=== PATIENT | male | born 1930 | race Caucasian/White ===

== ENCOUNTER → 2017-11-15 | Outpatient (CLI) | payer MEDICARE ==
--- NOTE | 2017-11-17 13:03 | PE ---
Nuclear medicine PET/CT HISTORY: Pulmonary nodule, lung carcinoma initial Patient received 14.6 mCi F-18 FDG intravenously in delayed scanning was performed from skull base to the mid thighs. Localization and attenuation correction CT scan was. No comparisons Neck and chest: Patient shows a lung mass, possible confluent mass with daughter lesions, in the righ t lower lobe showing a stellate appearance and extension anterior posterior direction towards the hil um measuring approximately 4.6 cm by approximately 3.7 cm in transverse dimension with extension into the pleural surface. There is associated hypermetabolic uptake, SUV is 6-7. 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 Posterior diaphragmatic hernias containing fat. 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 There are coronary artery calcifications. There is a small pericardial effusion. Hiatal he rnia is present. No pleural effusion. No mediastinal, axillary, or hilar adenopathy. Symmetric nasoph aryngeal uptake is indeterminate. Abdomen pelvis: No suspicious hypermetabolic uptake. Right and left adrenal gland show low dense foci and no suspicious uptake. No retroperitoneal adenopathy. Low dense foci within the liver right lobe posteriorly may represent cysts. Atheromatous change present within the aorta. Colonic interposition noted anterior to the left lobe liver. The prostate is enlarged and shows associated calcification, some associated hypermetabolic uptake no fahad inferiorly, SUV 1.1. Thickening of the urinary bladder wall may be due to chronic outlet obstruct ion. No adenopathy. Diverticular changes associated with the sigmoid colon. Osseous structures show degenerative disc changes at the lumbosacral junction. No suspicious hypermet abolic uptake. IMPRESSION: Hypermetabolic uptake associated with the irregular right lower lobe lung mass. Hypermeta bolic uptake associated with the prostate gland and nasopharynx is indeterminate.
== END | disposition home or self-care (01) ==
LOC: RADPETMAIN 15:19
PROVIDERS: ATTEND Internal Medicine Critical Care Medicine
DX: R91.8 Other nonspecific abnormal finding of lung field (principal)
CPT/HCPCS: 78815; A9552

== ENCOUNTER 2017-12-03 10:02 | Inpatient (IN) | payer MEDICARE ==
[~2017-12-03 10:02] MED LIST: ALBUTEROL NEB (CONC) 2.5 MG/0.5 ML INHALATION ONE; ATROPINE SULFATE 0.4 MG/ML 1 ML VIAL IM ONE; LIDOCAINE VISCOUS 300 MG/15 ML CUP MUCOUS MEM ONE; ONDANSETRON 4 MG/2 ML VIAL IVP PRN; Pre Op ABX Message 1 EACH MISC MISCELLANE ONE; fentaNYL (PF) 50 MCG/ML 2 ML AMP IV PRN
[2017-12-03] MEDS: LACTATED RINGERS 1,000 ML IV SCH ×2 (10:47→19:57)
[2017-12-03] MEDS ORDERED: LIDOCAINE 1% 20 ML VIAL (10MG/ML) FOR IV START INTRADERMA ONE (10:47)
--- NOTE | 2017-12-03 12:18 | CT ---
EXAMINATION TYPE: CT Chest wo con Veran Protocol DATE OF EXAM: 12/03/2017 COMPARISON: PET scan 11/15/2017 HISTORY: Veran chest CT DLP: 592.6 mGycm Automated exposure control for dose reduction was used. FINDINGS: There is pleural-based thickening and nodularity which likely is postinflammatory. Underlying COPD noted. 7 mm somewhat irregular density anterior segment right upper lobe noted. Addit ional nodule seen in the right upper lobe on image 31. Irregular density again seen in the superior s egment of the right lower lobe corresponding to the PET scan abnormal uptake is stable. There is a small pericardial effusion the heart is enlarged. Coronary artery calcification and athero sclerotic changes of the aorta. The ascending aorta measures 4.2 cm compatible with mild aneurysmal d ilation. There is a small hiatal hernia and nonspecific bilateral perinephric edema. Hypodensity within the liver posterior segment is indeterminate by noncontrast technique. Bilateral adrenal masses are seen with the largest seen on the right measuring 3.6 cm and a -11 Houns field units suggestive of adrenal adenoma. No abnormal uptake is seen by recent PET scan in the regio n. Sternal foramina noted. IMPRESSION: BRONCHIAL NAVIGATION PRIOR TO PROCEDURE.
[2017-12-03] MEDS ORDERED: METOPROLOL TARTRATE 5 MG/5 ML VIAL IVP ONE (12:36)
[2017-12-03] MEDS ORDERED: ALBUTEROL INHALER 60 PUFF/8 GM INHALER INHALATION ONE (12:36)
[2017-12-03] MEDS ORDERED: NEOSTIGMINE 1 MG/ML 10 ML VIAL ONE (12:36)
[2017-12-03] MEDS ORDERED: ROCURONIUM BROMIDE 10 MG/ML 10 ML VIAL IV ONE (12:36)
[2017-12-03] MEDS ORDERED: GLYCOPYRROLATE 0.2 MG/ML 2 ML VIAL ONE (12:36)
[2017-12-03] MEDS ORDERED: PROPOFOL 10 MG/ML 20 ML VIAL IV ONE (12:36)
[2017-12-03] MEDS ORDERED: FLUMAZENIL 0.1 MG/ML 5 ML VIAL IVP ONE (12:36)
[2017-12-03] MEDS ORDERED: MIDAZOLAM 2 MG/2 ML VIAL ONE (12:36)
[2017-12-03] MEDS ORDERED: PHENYLEPHRINE-0.9% NACL SYG 1 MG/10 ML SYRINGE ONE (12:36)
[2017-12-03] MEDS ORDERED: fentaNYL (PF) 50 MCG/ML 2 ML AMP ONE (12:36)
[2017-12-03] MEDS ORDERED: LACTATED RINGERS 1,000 ML IV ONE (13:45)
--- NOTE | 2017-12-03 15:14 | XR ---
EXAMINATION TYPE: XR chest 1V portable DATE OF EXAM: 12/03/2017 COMPARISON: None INDICATION: Post bronchoscopy TECHNIQUE: Single frontal view of the chest is obtained. FINDINGS: The heart size is normal. The pulmonary vasculature is normal. There is a patchy infiltrate in the right lower lobe. Post right clavicular repair is evident No pneumothorax is evident. IMPRESSION: 1. Right lower lobe infiltrate. Underlying mass could be considered. 2. No pneumothorax post contrast.
[2017-12-03 15:28] LABS: ABG PCO2 63 mmHg (35-45); ABG PH 7.26 (7.35-7.45); ABG PO2 401 mmHg (83-108)
[2017-12-03 15:29] LABS: ABG HCO3 27 mmol/L (21-25)
[2017-12-03] MEDS ORDERED: IPRATROPIUM-ALBUTEROL 3 ML NEB INHALATION PRN (16:33)
[2017-12-03 16:48] LABS: Glucose,Whole Blood 165 mg/dL (75-99)
[2017-12-03] MEDS ORDERED: SODIUM CHLORIDE 0.9% 1,000 ML IV ONE (16:59)
--- NOTE | 2017-12-03 17:22 | PCN ---
PROCEDURE NOTE PROCEDURE: Electromagnetic navigational bronchoscopy. PREOP DIAGNOSIS: Lesion right lower lobe. POSTOP DIAGNOSIS: Lesion right lower lobe. There was informed consent. There was universal timeout. The patient's procedure was done in the operating room at [facility]. The SPECIALTY TRIMMER/anesthesiologist provided general anesthesia for the procedure. The operators were Dr. Fields and also Dr. Deleon. The patient was under the effects of general anesthesia. The bronchoscope was inserted through the bronchoscope adapter connected to the endotracheal tube. Using the [employer] electromagnetic navigational bronchoscope, we attempted needle biopsies to the right lower lobe lesion. In addition, we did some washings to the right lower lobe. We were unable to get any brushes to the lesion. Likewise we were unable to get biopsy forceps to the lesion. The patient tolerated the procedure well. The patient will be recovered. We will do a chest x-ray. There was no immediate complications. I will talk to the patient's family. MMALISHAL / IVELISSEN: [id number] /
[2017-12-03] MEDS ORDERED: HYDROCORTISONE SUCCINATE 100 MG/2 ML VIAL IV SCH (17:45)
[2017-12-03] MEDS ORDERED: PIPERACILLIN-TAZOBACTAM 3.375 GM in DEXTROSE/WATER 1 50ML.BAG IVPB SCH (17:45)
[2017-12-03] MEDS: SODIUM CHLORIDE 0.9% 1,000 ML IV SCH (18:41)
[2017-12-03] MEDS: PANTOPRAZOLE 40 MG/10 ML VIAL IVP SCH (18:42)
--- NOTE | 2017-12-03 19:29 | HP ---
HISTORY AND PHYSICAL CHIEF COMPLAINT: Respiratory difficulty. HISTORY OF PRESENT ILLNESS: This is an 87-year-old gentleman with a past medical history of multiple medical problems, including history of asthma, history of hypertension, history of hypothyroidism, macular degeneration, being followed by Dr. Fields and Dr. Man in the outpatient setting, had right-sided suspected lung lesion. The patient underwent an electromagnetic navigation bronchoscopy by Dr. Fields today. The biopsies could not be performed, but post procedure, the patient developed respiratory difficulty and the patient had shortness of breath. The patient was started on BiPAP 10/5, and the patient was transferred to ICU per Dr. Fields. The blood pressure was found to be 87/66. The patient is stuporous, unable to give history. The patient is on BiPAP at this time as well. Patient also hypothermic. Most of the history is taken my discussion with staff and review of chart at this time. PAST MEDICAL HISTORY: History of asthma, history hypertension, history of macular degeneration, appendectomy. MEDICATIONS PRIOR TO ADMISSION: Include home medications are: 1. Atrovent nasal drops. 2. Symbicort 160/4.5 two puffs b.i.d. 3. Combivent 1 puff q.i.d. 4. PreserVision 1 daily. 5. Flomax 0.4 q.h.s. 6. Zestoretic 1 tablet q.h.s. 7. Synthroid 50 mcg p.o. daily. 8. [place]-3 350 mg p.o. daily. 9. Vitamin D3 2000 daily. ALLERGIES: None. FAMILY HISTORY: No history of heart disease or strokes in the family. SOCIAL HISTORY: Previous history of smoking. REVIEW OF SYSTEMS: Could not be taken. The patient is stuporous. PHYSICAL EXAM: Pulse is 101, blood pressure 108/69, respirations 20, temperature 95 degrees, pulse ox 97% on 28% BiPAP. BiPAP settings are noted. HEENT: Conjunctivae normal. Oral mucosa moist. NECK: No jugular venous distention. CARDIOVASCULAR: S1, S2 muffled. RESPIRATORY: Breath sounds diminished in the bases. A few scattered rhonchi and crackles. ABDOMEN: Soft, nontender. LEGS: No edema. No swelling. NERVOUS SYSTEM: Higher functions as mentioned earlier. Moves all 4 limbs. No focal motor or sensory deficits. LYMPHATIC: No lymphadenopathy in neck or axillae. SKIN: No ulcer, rash or bleeding. JOINTS: No active deforming arthropathy. LABS: At this time, ABGs: pH is 7.26, pCO2 63 and PO2 401. ASSESSMENT: 1. Acute hypoxic respiratory failure, status post bronchoscopy. 2. Right-sided chest lesion, possible pneumonia, possible malignancy. 3. Hypotension with hypothermia, possible sepsis, rule out addisonian crisis. 4. Mild to moderate protein-calorie malnutrition. 5. History of asthma. 6. History hypothyroidism. 7. Macular degeneration. 8. Appendectomy. 9. Remote history of nicotine dependence. RECOMMENDATIONS AND DISCUSSION: In this 87-year-old gentleman who presented with multiple complex medical issues , will monitor the patient closely. Continue with the current medical management and symptomatic treatment, bronchodilators. I will initiate empiric antibiotics, cultures, IV steroids, . Will closely follow with Dr. Fields. Otherwise, hold antihypertension medications. Guarded prognosis because of multiple complex medical issues. Further recommendations to follow. A copy of this dictation will be forwarded to Dr. Man, who is the primary physician. The prognosis is guarded. MMODL / IJN: [id number] / MTDD
[2017-12-03] MEDS: IPRATROPIUM-ALBUTEROL 3 ML NEB INHALATION SCH (19:42)
[2017-12-03] MEDS: SYMBICORT 160-4.5 MCG INHALER INHALATION SCH (19:42)
[2017-12-03] MEDS ORDERED: ONDANSETRON 4 MG/2 ML VIAL IVP PRN (19:43)
[2017-12-03] MEDS: HEPARIN SODIUM,PORCINE 5,000 UNIT/ML 1 ML VIAL SQ SCH (20:03)
[2017-12-03 20:40] VITALS: BMI 22.7
[2017-12-03] MEDS ORDERED: TAMSULOSIN 0.4 MG CAP.ER.24H PO SCH (21:00)
--- NOTE | 2017-12-03 22:14 | CONS ---
CONSULTATION This is an 87-year-old male who underwent electromagnetic navigational bronchoscopy today under general anesthesia. He has a lesion in the right lung. Anyway, after the procedure, he was extubated, but developed some respiratory distress. Initially he was in the operating room for a period of time, where he was being bagged. His narcotic was reversed with Narcan and his benzodiazepine was reversed with Romazicon. Anyway, despite this, he continued to have some distress and the patient was transferred over to the recovery room. A blood gas was obtained in the operating room. The arterial blood gas showed a PaO2 of 401, pCO2 of 63 and a pH of 7.26. The patient was placed on BiPAP 10 and 5 and 40%. His saturations were excellent and the patient was weaned down on the FiO2. As the patient continued to improve, he was transferred over to the ICU. He was actually admitted to [facility], but there were no beds. He was admitted to ICU as an overflow patient. In the ICU, the patient had a bit of a low blood pressure. He received some fluid resuscitation. He continued to improve and the patient was eventually weaned to 4L nasal cannula. His most recent vital signs show a heart rate of 85, respiratory rate of about 15, blood pressure 112/70 with a mean 84, and saturations in mid-to-high 90s on 3L nasal cannula. He is awake and alert. He was also a bit hypothermic and a warmer was used to warm him up to be normothermic. The patient is resting comfortably at the current time. The patient will likely be discharged home from the ICU tomorrow. His past medical history is positive for severe COPD. He also has a history of hypertension and hypothyroidism. Allergies are denied. His home medications include: 1. Atrovent nasal spray. 2. Symbicort. 3. Combivent inhaler. 4. Flomax. 5. Vitamins. 6. Lisinopril/hydrochlorothiazide. 7. Synthroid. 8. [place]-3 fatty oils and. 9. Vitamin D3. Surgical history is primarily remote. Occupational history is noncontributory. Social history is positive for significant and previous heavy tobacco use. FAMILY HISTORY: Noncontributory. REVIEW OF SYSTEMS: CONSTITUTIONAL: Negative. NEUROLOGIC: Negative. HEENT: Negative. CARDIOVASCULAR: Negative. PULMONARY: Shortness of breath initially, which is improved dramatically. GI/: Negative. RHEUMATOLOGIC/IMMUNOLOGIC: Negative. ENDOCRINOLOGIC AND DERMATOLOGIC: All negative. Vital signs are stable. His pulse rate is 85, respiratory rate 15, blood pressure 112/70, mean 84, saturations on 3L 98%. He is afebrile. Appears in no acute distress. Not having any additional respiratory distress. He has been weaned from the BiPAP. HEENT is grossly unremarkable. Mucous membranes are moist. No oral lesions. NECK: Supple. Full range of motion. No adenopathy or thyromegaly. Cardiovascular reveals regular rhythm rate. S1, S2 normal. Lungs reveal a few scattered mild rhonchi. No wheezes or crackles. Breath sounds are diminished. ABDOMEN: Soft. Bowel sounds are heard. Extremities are intact. There is no cyanosis, clubbing or edema. SKIN: Without rash. Neurologic is nonfocal. LAB DATA: Other than a blood gases I mentioned earlier are pending. His chest x-ray failed to reveal any pneumothorax or complication after the procedure. There was some infiltrate in the right lung consistent with the BAL that was performed during the procedure. His chest CT was evaluated prior to the procedure. Current medications include: 1. A basic IV 0.9 at 75 mL an hour. 2. He is on updrafts with DuoNeb q.i.d. and p.r.n. 3. He is on Symbicort 160/4.5 two puffs twice a day. 4. He is getting his home medications. 5. The other medications are just basic ICU admission order medications. ASSESSMENT: 1. Postoperative day #0, status post electromagnetic navigational bronchoscopy for a PET scan positive lesion in the right lung. Sampling was done today, included washes and lung needle biopsy. 2. History of chronic obstructive pulmonary disease, quite severe. 3. History of hypertension. 4. History of hypothyroidism. 5. History of significant and previous tobacco use. PLAN: The patient is doing well. I suspect he will be discharged home from the ICU tomorrow. Will await the results of the sampling. No additional recommendations are made. I did have a long talk with the son today. The son knew in advance that doing any sort of procedure on his father was risky and I did explain this in advance. He knew that severe hemorrhage, pneumothorax, prolonged mechanical ventilation, even were risk factors. As we move forward, if we are not able to make a diagnosis, I will talk to Radiation Therapy about stereotactic body radiotherapy as an option without tissue biopsy in this gentleman. I do not suspect he will be able to tolerate much more than that. Additional recommendations and suggestions are forthcoming. 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 Again, he should be discharged home tomorrow from the ICU. MANUEL / DOE: [id number] /
[2017-12-04 04:53] LABS: Basophils % (A) 0 %; Eosinophils % (A) 0 %; HCT 36.2 % (39.0-53.0); HGB 11.9 gm/dL (13.0-17.5); Lymphocytes # (A) 0.5 k/uL (1.0-4.8); Lymphocytes % (A) 7 %; MCH 29.5 pg (25.0-35.0); MCHC 32.7 g/dL (31.0-37.0); MCV 90.1 fL (80.0-100.0); Mean Platelet Volume 7.4; Monocytes # (A) 0.4 k/uL (0-1.0); Monocytes % (A) 5 %; Neutrophils # (A) 6.4 k/uL (1.3-7.7); Neutrophils % (A) 87 %; Platelet Count 187 k/uL (150-450); RBC 4.02 m/uL (4.30-5.90); RDW 14.5 % (11.5-15.5); WBC 7.4 k/uL (3.8-10.6)
[2017-12-04 05:53] LABS: ALT 30 U/L (21-72); AST 19 U/L (17-59); Albumin 2.8 g/dL (3.5-5.0); Alkaline Phosphatase 62 U/L (38-126); Anion Gap 6 mmol/L; Blood Urea Nitrogen 22 mg/dL (9-20); Calcium 8.5 mg/dL (8.4-10.2); Carbon Dioxide 25 mmol/L (22-30); Chloride 105 mmol/L (98-107); Glucose 117 mg/dL (74-99); Potassium 4.4 mmol/L (3.5-5.1); Sodium 136 mmol/L (137-145); Total Bilirubin 0.6 mg/dL (0.2-1.3); Total Protein 5.1 g/dL (6.3-8.2)
[2017-12-04] MEDS ORDERED: LEVOTHYROXINE 50 MCG TAB PO SCH (06:30)
[2017-12-04] MEDS: SODIUM CHLORIDE 0.9% 1,000 ML IV SCH (06:37)
[2017-12-04 07:27] LABS: Magnesium 1.8 mg/dL (1.6-2.3); Phosphorus 3.5 mg/dL (2.5-4.5)
--- NOTE | 2017-12-04 07:33 | P.PN ---
Subjective Progress Note Date: 12/04/17 Principal diagnosis: Status post bronchoscopy with respiratory difficulty Progress note dated 12/04/2017 This is an 87-year-old Jomed status post electromagnetic navigational bronchoscopy for a PET scan-positive lesion in the right lung. The procedure patient is yesterday. Today's postop day #1. After the procedure, the patient developed respiratory distress. He initially was transferred to the recovery area and put on BiPAP. He improved but we decided to admit him to [facility] for overnight observation. There is no beds on [facility] the patient was admitted to the ICU as an overflow patient. He was quickly switched from BiPAP to nasal prongs and did well the rest of the day. The patient could be discharged home today. We did get some sampling of the lesion. We got washes and needle biopsy. We also did obtain sampling for bronchial gentleman classification. Hopefully we'll get an answer from some of the samples that we got. Even if we don't, it appears that the patient's not to be able to tolerate any other procedures. We may have to opt for stereotactic body radiotherapy without a tissue diagnosis. I'll speak to radiology about that and the patient. I did speak to the patient's on yesterday about that. Objective - Vital Signs Vital signs: Vital Signs Temp 98.1 F 12/04/17 04:00 Pulse 93 12/04/17 04:00 Resp 18 12/04/17 04:00 BP 87/62 12/04/17 04:00 Pulse Ox 93 L 12/04/17 05:15 Intake & Output 12/03/17 12/04/17 12/04/17 18:59 06:59 18:59 Intake Total 2885 510 75 Output Total 0 200 150 Balance 2885 310 -75 Weight 74 kg 79.8 kg Intake: IV 2825 450 75 Sodium Chloride 0.9% 1, 0 450 75 000 ml @ 75 mls/hr IV . [id number] [facility] Rx#:[id number] Sodium Chloride 0.9% 1, 1000 000 ml @ 999 mls/hr IV . Q1H1M ONE Rx#:[id number] Oral 60 60 Output: Urine 0 200 150 Other: Voiding Method Urinal Urinal # Voids 1 1 - Exam No acute distress, oriented 3. HEENT examination is grossly unremarkable. Mucous membranes are moist. No oral lesions. Neck supple. Full range of motion. No adenopathy thyromegaly or neck vein distention. Cardiovascular examination reveals irregular rhythm and rate. S1-S2 normal. No S3 or S4. No discernible murmur noted. Lungs reveal mostly clear breath sounds. A few scattered rhonchi. Breath sounds are diminished throughout. Breath sounds equal bilaterally. No wheezes or crackles. Abdomen soft bowel sounds are heard. No masses or tenderness. Extremities are intact. No cyanosis clubbing or edema. Skin is without rash or lesion. Neurologic examination is brief but nonfocal. - Labs CBC & Chem 7: 12/04/17 04:40 12/04/17 04:40 Labs: Abnormal Lab Results - Last 24 Hours (Table) 12/03/17 12/03/17 12/04/17 Range/Units 15:15 16:47 04:40 RBC 4.02 L (4.30-5.90) m/uL Hgb 11.9 L (13.0-17.5) gm/dL Hct 36.2 L (39.0-53.0) % Lymphocytes # 0.5 L (1.0-4.8) k/uL ABG pH 7.26 L (7.35-7.45) ABG pCO2 63 H (35-45) mmHg ABG pO2 401 H (83-108) mmHg ABG HCO3 27 H (21-25) mmol/L ABG O2 Saturation 99.0 H (94-97) % Sodium (137-145) mmol/L BUN (9-20) mg/dL Glucose (74-99) mg/dL POC Glucose (mg/dL) 165 H (75-99) mg/dL Total Protein (6.3-8.2) g/dL Albumin (3.5-5.0) g/dL 12/04/17 Range/Units 04:40 RBC (4.30-5.90) m/uL Hgb (13.0-17.5) gm/dL Hct (39.0-53.0) % Lymphocytes # (1.0-4.8) k/uL ABG pH (7.35-7.45) ABG pCO2 (35-45) mmHg ABG pO2 (83-108) mmHg ABG HCO3 (21-25) mmol/L ABG O2 Saturation (94-97) % Sodium 136 L (137-145) mmol/L BUN 22 H (9-20) mg/dL Glucose 117 H (74-99) mg/dL POC Glucose (mg/dL) (75-99) mg/dL Total Protein 5.1 L (6.3-8.2) g/dL Albumin 2.8 L (3.5-5.0) g/dL Assessment and Plan Assessment: Assessment Near respiratory failure, hypoxemic in nature along with hypercapnic respiratory failure, status post electromagnetic navigational bronchoscopy. Status post ENB for a PET scan-positive lesion in the right lung Severe COPD Hypertension by history. Hypothyroidism History of atrial fibrillation Previous history of significant tobacco use or rapid Plan: Plan dated 12/04/2017 The patient's doing well. The patient could be discharged out of the ICU to home. Follow up with him in the office. No additional recommendations are made. Prognosis is guarded. I don't believe the patient will be able to tolerate another procedure. He may be left with either no treatment at all for suspected lung cancer or the possibility of stereotactic body radiotherapy without a tissue diagnosis. Time with Patient: Less than 30
[2017-12-04] MEDS: IPRATROPIUM-ALBUTEROL 3 ML NEB INHALATION SCH ×2 (07:34→11:18)
[2017-12-04] MEDS: SYMBICORT 160-4.5 MCG INHALER INHALATION SCH (07:34)
[2017-12-04 07:57] VITALS: BP 105/75; TEMP 97.5
[2017-12-04] MEDS: PANTOPRAZOLE 40 MG/10 ML VIAL IVP SCH (08:02)
[2017-12-04] MEDS: HEPARIN SODIUM,PORCINE 5,000 UNIT/ML 1 ML VIAL SQ SCH (08:02)
[2017-12-04] MEDS ORDERED: CHOLECALCIFEROL 1,000 UNIT TAB PO SCH (09:00)
[2017-12-04 09:28] VITALS: PULSE 85; RESP 15
--- NOTE | 2017-12-04 12:18 | XR ---
EXAMINATION TYPE: XR chest 1V DATE OF EXAM: 12/04/2017 HISTORY: Shortness of breath. COMPARISON: None. TECHNIQUE: Single view of the chest is submitted. FINDINGS: Demonstrated are scattered senescent parenchymal change. Patchy density right lower lobe persists and is essentially unchanged. The heart is stable. Hilar and mediastinal structures are within normal limits. Degenerative changes are seen of the dorsal spine. IMPRESSION: 1. Patchy density right lower lobe persists and is essentially unchanged.
--- NOTE | 2017-12-04 15:32 | P.DS ---
Providers Date of admission: 12/04/17 09:10 Attending physician: Biju Rob Consults: 12/03/17 16:29 Consult Physician Routine Consulting Provider: Cooper Fields Consult Reason/Comments: ICU managment Do you want consulting provider notified?: Already Contacted Primary care physician: Jorgito Chadwick [facility] Course: 87-year-old admitted for respiratory failure post navigational bronchoscopy because of severe COPD although it is not requiring any systemic steroids prototyper was able to wean off BiPAP without any oral or IV steroids and patient is on inhalational steroids patient is cleared for discharge will be discharged to home. Patient is bit tachycardic because of his a COPD itself and hypotensive because of which antihypertensive medication was discontinued metoprolol as will be prescribed. - Exam No acute distress, oriented 3. HEENT examination is grossly unremarkable. Mucous membranes are moist. No oral lesions. Neck supple. Full range of motion. No adenopathy thyromegaly or neck vein distention. Cardiovascular examination reveals irregular rhythm and rate. S1-S2 normal. No S3 or S4. No discernible murmur noted. Lungs reveal mostly clear breath sounds. A few scattered rhonchi. Breath sounds are diminished throughout. Breath sounds equal bilaterally. No wheezes or crackles. Abdomen soft bowel sounds are heard. No masses or tenderness. Extremities are intact. No cyanosis clubbing or edema. Skin is without rash or lesion. Neurologic examination is brief but nonfocal. Assessment Near respiratory failure, hypoxemic in nature along with hypercapnic respiratory failure, status post electromagnetic navigational bronchoscopy. Status post ENB for a PET scan-positive lesion in the right lung Severe COPD Hypertension by history. Hypothyroidism History of atrial fibrillation Previous history of significant tobacco use or rapid Plan - Discharge Summary Discharge Rx Participant: No New Discharge Prescriptions: New Metoprolol Tartrate [Lopressor] 25 mg PO BID #60 tablet Discontinued Lisinopril-Hctz 20-25 mg [Zestoretic 20-25] 1 tab PO DAILY No Action Ipratropium/Albuterol Sulfate [Combivent Respimat Inhaler] 1 puff INHALATION RT-QID Budesonide-Formot 160-4.5 Mcg [Symbicort 160-4.5 Mcg Inhaler] 2 puff INHALATION RT-BID Levothyroxine Sodium [Synthroid] 50 mcg PO DAILY Vit C/E/Zn/Coppr/Lutein/Zeaxan [Preservision Areds 2 Softgel] 1 cap PO DAILY Tamsulosin HCl [Flomax] 0.4 mg PO HS Krill/Om-3/Dha/Epa/Phospho/Ast [[place]-3 Krill Oil 300 mg Sfgl] 1 cap PO DAILY Ipratropium [place] 0.06%Nasal [Atrovent Nasal 0.06%] 1 spray EA NOSTRIL DAILY Cholecalciferol (Vitamin D3) [Vitamin D3] 2,000 unit PO DAILY Discharge Medication List Budesonide-Formot 160-4.5 Mcg [Symbicort 160-4.5 Mcg Inhaler] 2 puff INHALATION RT-BID 12/01/17 [History] Cholecalciferol (Vitamin D3) [Vitamin D3] 2,000 unit PO DAILY 12/01/17 [History] Ipratropium [place] 0.06%Nasal [Atrovent Nasal 0.06%] 1 spray EA NOSTRIL DAILY 12/01/17 [History] Ipratropium/Albuterol Sulfate [Combivent Respimat Inhaler] 1 puff INHALATION RT- QID 12/01/17 [History] Krill/Om-3/Dha/Epa/Phospho/Ast [[place]-3 Krill Oil 300 mg Sfgl] 1 cap PO DAILY [History] Levothyroxine Sodium [Synthroid] 50 mcg PO DAILY 12/01/17 [History] Tamsulosin HCl [Flomax] 0.4 mg PO HS 12/01/17 [History] Vit C/E/Zn/Coppr/Lutein/Zeaxan [Preservision Areds 2 Softgel] 1 cap PO DAILY [History] Metoprolol Tartrate [Lopressor] 25 mg PO BID #60 tablet 12/04/17 [Rx] Follow up Appointment(s)/Referral(s): Cooper Fields DO [Doctor of Osteopathic Medicine] - 12/08/17 1:45 pm Patient Instructions/Handouts: Moderate Sedation (DC), Hypotension (DC) Activity/Diet/Wound Care/Special Instructions: Take it easy until you see Dr. Fields. Follow your regular diet. Activity as tolerated Discharge Disposition: HOME SELF-CARE
== END 2017-12-04 11:22 | disposition home or self-care (01) | DRG 189 ==
LOC: ORWHC2ENDO 10:02 → 6ICU 15:23 → ORWHC2ENDO 12-04 09:09 → 6ICU 12-04 09:10
PROVIDERS: ADMIT Hospitalist; ATTEND Hospitalist
PROC: 0BB68ZX Excision of Right Lower Lobe Bronchus, Via Natural or Artificial Opening Endoscopic, Diagnostic (ICD-10-PCS; principal; 2017-12-03 12:30)
PROC: 8E0WXBG Computer Assisted Procedure of Trunk Region, With Computerized Tomography (ICD-10-PCS; 2017-12-03 12:30)
PROC: 5A09357 Assistance with Respiratory Ventilation, Less than 24 Consecutive Hours, Continuous Positive Airway Pressure (ICD-10-PCS; 2017-12-03 12:30)
DX: J96.01 Acute respiratory failure with hypoxia (principal); E44.0 Moderate protein-calorie malnutrition; J44.9 Chronic obstructive pulmonary disease, unspecified; J96.02 Acute respiratory failure with hypercapnia; I95.9 Hypotension, unspecified; R91.1 Solitary pulmonary nodule; I10 Essential (primary) hypertension; E03.9 Hypothyroidism, unspecified; H35.30 Unspecified macular degeneration; Z79.890 Hormone replacement therapy; Z79.51 Long term (current) use of inhaled steroids; Z79.899 Other long term (current) drug therapy; Z87.891 Personal history of nicotine dependence; Z90.49 Acquired absence of other specified parts of digestive tract; Z86.79 Personal history of other diseases of the circulatory system
CPT/HCPCS: 31624; 31627; 31629; 36600; 71045; 71250; 80053; 82805; 83735; 84100; 85025; 88108; 88173; 88305; 94640; 94660

== ENCOUNTER → 2018-02-13 | Outpatient (CLI) | payer MEDICARE ==
--- NOTE | 2018-02-14 14:51 | CT ---
EXAMINATION TYPE: CT chest wo/w con DATE OF EXAM: 02/13/2018 COMPARISON: 12/03/2017 CT chest and PET/CT dated 11/15/2017. HISTORY: Lung Cancer CT DLP: 863 mGycm. Automated Exposure Control for Dose Reduction was Utilized. TECHNIQUE: CT scan of the thorax is performed following without and with IV Contrast, patient inject ed with 100 ml mL of Isovue 300. FINDINGS: LUNGS: There is mild to moderate background centrilobular emphysema. Again within the anterior segmen t of the right upper lobe there is focal pleural thickening and a subsolid nodule the solid portion m easuring approximately 7 mm on series 4 image 20. There is spiculated margins. Additional right upper lobe nodule and adjacent satellite nodule are also similar to the prior on series 4 image 26 and 25. Punctate nodules within the right upper lobe laterally are also seen more posteriorly on image 26. 2 mm nodule in the right upper lobe is unchanged on image 31. Within the right lung base there is decr ease in size of the multilobulated pulmonary nodule at the most solid portion measuring 8 mm. Elongat ed areas of scarring are seen emanating from this mass and groundglass opacities suggesting peritumor al hemorrhage. There is also traction bronchiectasis of a subsegmental right lower lobe bronchus. No new pulmonary nodules or masses are seen. Biapical pleural parenchymal scarring is present. MEDIASTINUM: There are no greater than 1 cm hilar or mediastinal lymph nodes. No pericardial effusi on is seen. Moderate atherosclerosis of the thoracic aorta is noted with moderate to severe three-ve ssel coronary artery calcifications. Ascending aorta is again mildly enlarged measuring 4.2 cm. There is a small pericardial effusion present. OTHER: Note is again made of a moderate hiatal hernia and bilateral low-density adrenal gland adenom as. Solitary hepatic lesion, too small to accurately characterize is unchanged from the prior. The mo re inferior posterior medial segment 6 lesion is not imaged on today's examination given [id number]. Old healed rib fracture of right rib 2 is present. No new suspicious osseous lesions. Enhancement of the spleen may be related to red pulp and white pulp as it is an angiographic phase. IMPRESSION: Response to treatment in the right lower lobe multilobulated pulmonary mass previously me asuring up to 3.9 cm in radius longitudinal dimension and now measuring 8 mm with surrounding peritum oral hemorrhage and/or post therapy change. The remaining right-sided pulmonary nodules appears stabl e from the prior exam of 12/03/2017. Upper abdominal noncontrast findings of indeterminate hepatic les ion and benign adrenal gland nodules are also unchanged from the prior. No new mediastinal adenopathy .
== END | disposition home or self-care (01) ==
LOC: RADCTMAIN 11:12
PROVIDERS: ATTEND Radiology Radiation Oncology
DX: C34.31 Malignant neoplasm of lower lobe, right bronchus or lung (principal); R91.8 Other nonspecific abnormal finding of lung field; K76.89 Other specified diseases of liver; Z87.891 Personal history of nicotine dependence
CPT/HCPCS: 82565; 84520; 71270; 36415; Q9967

== ENCOUNTER → 2018-05-18 | Outpatient (CLI) | payer MEDICARE ==
--- NOTE | 2018-05-18 13:22 | CT ---
EXAMINATION TYPE: CT chest w con DATE OF EXAM: 05/18/2018 COMPARISON: 02/13/2018 and 12/03/2017 CT chest as well as PET/CT dated 11/15/2017 HISTORY: Malignant neoplasm lower lung CT DLP: 486 mGycm. Automated Exposure Control for Dose Reduction was Utilized. TECHNIQUE: CT scan of the thorax is performed following with IV Contrast, patient injected with 100 mL of Isovue 300. FINDINGS: LUNGS: Again there is mild to moderate background centrilobular emphysema with biapical pleural paren chymal scarring. In the region the patient's known right lower lobe pulmonary nodule there is a new bilobed bandlike o pacity such as on coronal series 5 image 79. On axial images the 2 nodular portions giving a bilobed appearance measuring 1.2 on 1.5 cm on series 4 image 41. These are also demonstrated on soft tissue w indows. The more lateral appears to correspond to the known pulmonary nodule and has slightly increas ed in size previously measuring approximately 8 mm. There is associated section cylindrical traction bronchiectasis that is focal. Within the anterior segment of the right upper lobe there is redemonstration of focal pleural thicken ing. Solid pulmonary nodule seen on series 4 image 20, unchanged from the prior measuring approximate ly 7 mm. Again there are spiculated margins. Right upper lobe pulmonary nodule satellite nodule demonstrated on series 4 image 25 are also unchang ed. These measure approximately 6 mm and 3 mm. Clustered pulmonary nodules within the superior segment of the right lower lobe are also unchanged on series 4 image 20 7H measuring 3 mm (2 in number). No new pulmonary nodule is seen. MEDIASTINUM: There are no greater than 1 cm hilar or mediastinal lymph nodes. There is a small perica rdial effusion as seen on the prior. Ascending thoracic aorta is again mildly enlarged measuring 4.2 cm. Moderate to severe three-vessel coronary artery calcifications are seen. OTHER: There is a moderate hiatal hernia fully upon itself. Nonspecific perinephric fat stranding is seen. The bilateral low-density adrenal gland lesions appear similar and were compatible with adenoma s on the prior noncontrast exam. Surgical fixation plate of the right clavicle is seen. There are 3 s imple appearing hepatic cysts and 2 too small to accurately characterize lesions. IMPRESSION: 1. New nodular bandlike opacity within the right lower lobe at the location of the patient's primary known neoplasm. Correlate with timing of any prior radiation if given as this could represent posttre atment change. The remaining right sided pulmonary nodules remain subcentimeter and are unchanged fro m 12/03/2017. 2. Scattered hepatic cysts and additional 2 hepatic lesions that are subcentimeter and too small to a ccurately characterize. 3. 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 4. Unchanged small pericardial effusion.
== END | disposition home or self-care (01) ==
LOC: RADCTMAIN 10:58
PROVIDERS: ATTEND Radiology Radiation Oncology
DX: C34.31 Malignant neoplasm of lower lobe, right bronchus or lung (principal); I31.3 Pericardial effusion (noninflammatory); Z87.891 Personal history of nicotine dependence
CPT/HCPCS: 82565; 84520; 71260; 36415; Q9967

== ENCOUNTER → 2018-08-17 | Outpatient (CLI) | payer MEDICARE ==
--- NOTE | 2018-08-17 12:29 | CT ---
EXAMINATION TYPE: CT chest wo/w con DATE OF EXAM: 08/17/2018 COMPARISON: 05/18/2018 HISTORY: Malignant neoplasm of lower lobe, right bronchus CT DLP: 453.0 mGycm Automated exposure control for dose reduction was used. CONTRAST: CT scan of the chest is performed without and with IV Contrast, patient injected with 100 mL of Isovu e 300. FINDINGS: LUNGS: Bandlike area of increased density right lower lobe with to interpose nodules measuring 8.2 an d 8.8 mm respectively persist and appear slightly smaller in size versus prior examination with prior measurements of 1.5 cm and 1.2 cm. There are no new nodules identified right upper lobe image 35 ave suring 7 mm and 4.3 mm. Additional pleural-based right upper lobe nodule measuring 0.7 mm. Additional right upper lobe pulmonary nodules with spiculation measuring 4.6 mm and 0.2 mm selectively. Right u pper lobe pleural-based pulmonary nodule measuring 5.3 mm image 23. Underlying emphysematous changes noted. MEDIASTINUM: There are no greater than 1 cm hilar or mediastinal lymph nodes. No pericardial effusi on is seen. Thoracic aorta is of normal caliber. The heart is not enlarged. Small pericardial effusi on noted. UPPER ABDOMEN: Scattered hepatic lesions are nonspecific. Thickening of the left adrenal gland. OTHER: Fixed hiatal hernia. IMPRESSION: 1. While 2 right lower lobe pulmonary nodules have decreased in size. There are new small spiculated nodules within the right lung suspicious for recurrent or metastatic disease.
== END ==
LOC: RADCTMAIN 10:38
PROVIDERS: ATTEND Radiology Radiation Oncology
DX: C34.31 Malignant neoplasm of lower lobe, right bronchus or lung (principal); Z87.891 Personal history of nicotine dependence; Z92.3 Personal history of irradiation
CPT/HCPCS: 82565; 84520; 71270; 36415; Q9967

== ENCOUNTER → 2018-10-07 | Outpatient (CLI) | payer MEDICARE ==
--- NOTE | 2018-10-07 15:03 | CT ---
EXAMINATION TYPE: CT chest wo/w con DATE OF EXAM: 10/07/2018 COMPARISON: 08/17/2018 HISTORY: Follow up to lung CA CT DLP: 806 mGycm, Automated exposure control for dose reduction was used. CONTRAST: Performed injected with 100 mL of Isovue 300. TECHNIQUE: Axial images were obtained at 5 mm thick sections. Reconstructed images are reviewed on [employer] computer in the coronal plane. FINDINGS: Portion of the thyroid visualized is normal. Some streak opacities within the anterior right middle lobe. This may be scarring present previously. There are additional areas of increased density within the right midlung. A spiculated area measurin g 1.4 x 1.0 cm the right midlung. Series 4 image 24. This appears to be increased from prior study. T here is a 0.4 cm nodularity in the periphery of the right midlung which may be new. There is a consolidation in the posterior right midlung with indistinct margins. Underlying mass coul d be considered. This was present previously and appears stable. Emphysematous changes are present. No enlarged mediastinal or hilar adenopathy is evident. The ascending aorta diameter at the level o f the main pulmonary artery is 4.4 cm. The main pulmonary artery diameter at the bifurcation is 2.4 cm. Moderate coronary artery calcifications present. There is a moderate size hiatal hernia present. Limited CT sections are obtained through the upper abdomen. Some perinephric stranding may be present . A cyst measuring 1.4 cm in -3 Hounsfield units is in the superior right lobe liver. IMPRESSIONS: 1. Consolidation posterior right midlung may be related to the patient's reported cancer. This area a ppears stable from the comparison of 08/17/2018. 2. There is irregular density in the right upper lobe which may have been present previously and is s lightly larger. 3. A right lung punctate nodularity measuring 0.4 cm may be new.
== END | disposition home or self-care (01) ==
LOC: RADCTMAIN 11:02
PROVIDERS: ATTEND Radiology Radiation Oncology
DX: R91.1 Solitary pulmonary nodule (principal); J98.4 Other disorders of lung; C34.31 Malignant neoplasm of lower lobe, right bronchus or lung; Z92.3 Personal history of irradiation; Z87.891 Personal history of nicotine dependence
CPT/HCPCS: 82565; 84520; 71270; 36415; Q9967

== ENCOUNTER → 2019-01-04 | Outpatient (CLI) | payer MEDICARE ==
--- NOTE | 2019-01-04 15:36 | CT ---
EXAMINATION TYPE: CT chest wo/w con DATE OF EXAM: 01/04/2019 COMPARISON: HISTORY: follow up to lung CA CT DLP: 381.8 mGycm, Automated exposure control for dose reduction was used. CONTRAST: Performed injected with 100 mL of Isovue 300. TECHNIQUE: Axial images were obtained at 5 mm thick sections. Reconstructed images are reviewed on [employer] computer in the coronal plane. FINDINGS: Portion of the thyroid visualized is normal. There is prior right clavicular repair. Emphysematous changes are present. There is a focal area of increased density within the right middle lobe. Series 8 image 18. There is a 1.2 cm lobular density in the posterior lateral right lung base a 0.4 cm nodules in the periphery of the right middle lobe. Series 8 image 23. Findings were present previously. No enlarged mediastinal or hilar adenopathy is evident. The ascending aorta diameter at the level o f the main pulmonary artery is 4.4 cm. The main pulmonary artery diameter at the bifurcation is 2.6 cm. Mild coronary artery calcification is present. Limited CT sections are obtained through the upper abdomen. There is moderate size hiatal hernia pres ent. Right lobe hepatic cyst is within the [id number]. Some perinephric stranding may be present. IMPRESSIONS: 1. Scattered right lung nodularities appear stable from the comparison of 10/07/2018. Follow-up exam i n 6 months is recommended.
== END | disposition home or self-care (01) ==
LOC: RADCTMAIN 08:17
PROVIDERS: ATTEND Radiology Radiation Oncology
DX: C34.31 Malignant neoplasm of lower lobe, right bronchus or lung (principal); R91.8 Other nonspecific abnormal finding of lung field; Z92.3 Personal history of irradiation; Z87.891 Personal history of nicotine dependence
CPT/HCPCS: 82565; 84520; 71270; 36415; Q9967

== ENCOUNTER → 2020-01-07 | Outpatient (CLI) | payer MEDICARE ==
--- NOTE | 2020-01-07 16:06 | CT ---
EXAMINATION TYPE: CT chest wo/w con DATE OF EXAM: 01/07/2020 COMPARISON: 8 07/05/2019 HISTORY: follow up lung cancer CT DLP: 361.3 mGycm, Automated exposure control for dose reduction was used. CONTRAST: Performed injected with 80 mL of Isovue 300. TECHNIQUE: Axial images were obtained at 5 mm thick sections. Reconstructed images are reviewed on [employer] computer in the coronal plane. FINDINGS: Portion of the thyroid visualized is normal. Extensive emphysematous changes are present. Some minimal pleural thickening is along the posterior r ight margin. There is an area of pneumonitis within the anterior right upper lobe. Series 7 image 23. There is a spiculated density measuring 2.5 x 1.9 cm in the right midlung. Series 7 image 30. This h as developed from the recent comparison 07/05/2019 CT chest. Diffuse increased areas of pneumonitis ar e in the superior segment right lower lobe. There is a pleural-based nodularity is some spiculated ma rgins on the right middle lobe measuring 1.2 cm. Series 7 image 42. No enlarged mediastinal or hilar adenopathy is evident. The ascending aorta diameter at the level o f the main pulmonary artery is 3.9 cm. The main pulmonary artery diameter at the bifurcation is 2.[address] sections are obtained through the upper abdomen. There is a moderate size hiatal hernia pr esent. IMPRESSIONS: 1. Areas of pneumonitis and nodularity within the right lung suspicious for neoplasm. The mass within the periphery of the right midlung has largely developed over the interval. Additional workup with P ET CT is recommended.
== END | disposition home or self-care (01) ==
LOC: RADCTMAIN 10:42
PROVIDERS: ATTEND Radiology Radiation Oncology
DX: C34.31 Malignant neoplasm of lower lobe, right bronchus or lung (principal); J18.9 Pneumonia, unspecified organism; Z92.3 Personal history of irradiation; Z87.891 Personal history of nicotine dependence
CPT/HCPCS: 82565; 84520; 71270; 36415; Q9967

== ENCOUNTER → 2020-01-14 | Outpatient (CLI) | payer MEDICARE ==
--- NOTE | 2020-01-18 10:19 | PE ---
EXAMINATION TYPE: PET CT fusion skull to thigh DATE OF EXAM: 01/14/2020 COMPARISON: Prior PET CT November 15, 2017. Prior CT January 07, 2020 and older CTs. HISTORY: Right-sided lung cancer diagnosed 2018 completed radiation treatment. TECHNIQUE: Following the intravenous administration of 12.22 mCi of F-18 FDG, whole body images are performed from the skull base to the midthigh. Images are reviewed on the computer in the coronal, a xial, and sagittal planes. Reconstructed rotating images are created on independent workstation and reviewed on the computer. A noncontrast CT is performed in conjunction with the PET scan. SCAN: Subsequent Scan FINDINGS: SKULL BASE AND NECK: No new areas of suspicious hypermetabolic uptake. CHEST, MEDIASTINUM, AND HILAR REGION: Background moderate underlying emphysematous changes redemonstr ated. Irregular 2.3 x 1.0 cm anterior right upper lung scarring or scarlike opacity axial image 84 un changed from several prior studies is noted ametabolic. Smaller peripheral scarring inferior lateral to this near axial image 90 with slight nodularity is noted ametabolic. There is however hypermetabol ic uptake in the spiculated 2.1 x 1.7 cm enlarging nodule axial image 87, max SUV is 5.81. Inferior t o this there is moderate linear scarring that is a metabolic. Left lung shows no areas of abnormal hy permetabolic uptake. No suspicious hypermetabolic thoracic nodules noted. ABDOMEN AND PELVIS: Prominent bowel uptake in the right upper pelvis appears to correlate to level of bowel intussusception. Underlying mass needs to be considered. Follow-up advised. Max SUV 12.19. OSSEOUS STRUCTURES: No suspicious hypermetabolic uptake. OTHER CT: Mild/moderate calcified plaque bilateral carotid bulb level. Ascending aortic aneurysm up to 4.2 cm axial image 99. Moderate to severe three-vessel coronary arter y calcification. Moderate size hiatal hernia. Mild cardiomegaly with tiny pericardial effusion. There is 1.6 cm thin-walled cyst posterior right hepatic lobe. Mildly enlarged prostate gland consist ent with BPH. Mild diffuse soft tissue anasarca. Ectasia with moderate atherosclerotic change of the aorta extending into branch vessels. Slight underlying scoliotic curvature. IMPRESSION: Recurrent or new active neoplasm right mid lung. Bowel intussusception right upper pelvis . Underlying mass or neoplasm needs to be considered given the eccentric hypermetabolic soft tissue. Findings are thought localized to small bowel. Perfect serve performed to ordering radiation oncologist at time of dictation.
== END | disposition home or self-care (01) ==
LOC: RADPETMAIN 15:17
PROVIDERS: ATTEND Radiology Radiation Oncology
DX: K56.1 Intussusception (principal); C34.31 Malignant neoplasm of lower lobe, right bronchus or lung; Z92.3 Personal history of irradiation; Z87.891 Personal history of nicotine dependence
CPT/HCPCS: 78815; A9552

== ENCOUNTER → 2020-03-02 | Outpatient (CLI) | payer MEDICARE ==
--- NOTE | 2020-03-03 09:33 | CT ---
EXAMINATION TYPE: CT Enterography DATE OF EXAM: 03/02/2020 COMPARISON: PET/CT 01/14/2020 HISTORY: 89-year-old male K5 6.1 Intussusception. TECHNIQUE: Contiguous axial scanning of the abdomen and pelvis performed without and with IV Contrast , patient injected with 100 mL of Isovue 370. Arterial and portal venous phase imaging is performed a fter administration of negative oral contrast agent per enterography protocol. Coronal/sagittal recon structions performed. CT DLP: 1735 mGycm Automated exposure control for dose reduction was used. FINDINGS: Heart upper limits of normal in size with trace pericardial fluid. Three-vessel coronary artery calci fications are present. Mild emphysematous changes in the lower lungs. Mildly aneurysmal ascending thoracic aorta 3.0 cm. Mild to moderate metastatic calcifications infrare nal abdominal aorta and iliac arteries. Fusiform ectasia infrarenal abdominal aorta 2.7 cm and bilate ral common iliac arteries at 1.8 cm each. Arterial phase is delayed due to prominent reflux into the hepatic veins and IVC. The portal venous p hase sequence resemble the arterial phase. Correlation can be made for a limited cardiac pressures/he art failure. Moderate sized hiatal hernia. A few hypodense lesions within the liver measuring up to 1.6 cm suggesting cysts. Gallbladder, right kidney, spleen, and pancreas show no gross abnormality. Low-density masses of the bilateral adrenal glands measuring 4.2 x 1.9 cm on the right and 2.5 x 1.6 cm on the left compatible with benign lipid rich adrenal adenomas. No dilated small bowel, free fluid, or free air. No mesenteric or retroperitoneal lymphadenopathy marysol ntified. The previous right lower quadrant intussusception has resolved. However, now apparent is a 5.6 x 3.6 cm apple core lesion at the level of the upper ascending colon/ hepatic flexure. Significant luminal narrowing but without obstruction. Extensive sigmoid diverticulosis. Bladder is urine distended. There is trabeculated appearance with a left posterior 1.9 cm bladder wal l diverticulum. Prostate gland enlargement 5.5 cm wide with associated calcifications. No abnormal fluid collection in the pelvis or pelvic lymphadenopathy. Mild generalized anasarca change. Bones: Mild degenerative changes of the hips. Moderately advanced degenerative disc disease L4-L5 and L5-S1. Hypertrophic facet arthropathy. Vertebral compression collapse of L1 with mild retropulsion i nto the ventral spinal canal. The finding was present on 12/30/2019 but is new from 07/05/2019. IMPRESSION: 1. THE PREVIOUS RIGHT LOWER QUADRANT INTUSSUSCEPTION HAS RESOLVED. HOWEVER, NOW APPARENT IS A 5.6 X 3 .6 CM APPLE CORE LESION/NEOPLASM AT THE LEVEL OF THE UPPER ASCENDING COLON/HEPATIC FLEXURE. THIS SIGN IFICANTLY NARROWS THE ENDOLUMINAL CALIBER BUT WITHOUT OBSTRUCTION. 2. NO METASTATIC DISEASE IDENTIFIED IN THE ABDOMEN OR PELVIS. 3. THE POSTCONTRAST SEQUENCES ARE DELAYED DUE TO REFLUX INTO THE IVC. CORRELATE FOR DECREASED EJECTIO N FRACTION AND/OR ELEVATED CARDIAC PRESSURES/CHF. 4. MODERATE-SIZED HIATAL HERNIA. INCIDENTAL LIPID RICH BILATERAL ADRENAL ADENOMAS MEASURING UP TO 4.2 CM, AND SIGMOID DIVERTICULOSIS. CORRELATE FOR BPH GIVEN PROSTATOMEGALY OF 5.5 CM WIDE AND TRABECULAT ED BLADDER. 5. L1 VERTEBRAL COMPRESSION COLLAPSE NEW FROM 07/05/2019 BUT PRESENT ON 12/30/2019. MILD SPINAL CANAL S TENOSIS AT THIS LEVEL FROM RETROPULSION.
== END | disposition home or self-care (01) ==
LOC: RADCTMAIN 12:41
PROVIDERS: ATTEND Surgery
DX: K44.9 Diaphragmatic hernia without obstruction or gangrene (principal); D35.02 Benign neoplasm of left adrenal gland; D35.01 Benign neoplasm of right adrenal gland; K57.30 Diverticulosis of large intestine without perforation or abscess without bleeding; K63.89 Other specified diseases of intestine
CPT/HCPCS: 82565; 84520; 36415; 74178; Q9967

== ENCOUNTER → 2020-04-14 | Outpatient (CLI) | payer MEDICARE ==
--- NOTE | 2020-04-14 15:22 | CT ---
EXAMINATION TYPE: CT chest wo con DATE OF EXAM: 04/14/2020 COMPARISON: 01/07/2020 HISTORY: lung CA CT DLP: 225.7 mGycm, Automated exposure control for dose reduction was used. CONTRAST: Performed injected with 0 mL of Isovue 300. TECHNIQUE: Axial images were obtained at 5 mm thick sections. Reconstructed images are reviewed on [employer] computer in the coronal plane. FINDINGS: Portion of the thyroid visualized is normal. There is a 0.5 cm posterior medial right apical pleural-based nodularity is previously. Emphysematous changes are present. Groundglass opacities in the anterior right midlung. Series 4 image 27. Spiculated density on lung wi ndows is in the right midlung measuring 1.4 x 1.8 cm. Series 4 image 30 this is less dense than the c omparison study although similar in size. There may be a new patchy infiltrate within the anterior ri ght midlung. Series 4 image 32. There is a new small density within the base of the right middle lobe measuring 0.7 cm. Series 4 image 51. Couple small densities are in the posterior right lung base may be some atelectasis which is new from comparison. No enlarged mediastinal or hilar adenopathy is evident. The ascending aorta diameter at the level o f the main pulmonary artery is 4.3 cm. The main pulmonary artery diameter at the bifurcation is 2.6 cm. Coronary artery calcification is present. Moderate size hiatal hernia is present. Limited CT sections are obtained through the upper abdomen. There is a 2.1 cm hypodensity within the posterior right lobe liver. This is similar to prior study measures 17 Hounsfield units. IMPRESSIONS: 1. Spiculated mass right midlung similar in size to prior study although appears less dense than the comparison. 2. Some changing in developing groundglass opacities within the right midlung. Early metastasis is no t excluded.
== END | disposition home or self-care (01) ==
LOC: RADCTMAIN 12:38
PROVIDERS: ATTEND Radiology Radiation Oncology
DX: C34.31 Malignant neoplasm of lower lobe, right bronchus or lung (principal)
CPT/HCPCS: 71250